=== PATIENT | female | born 1980 | race Caucasian/White ===

== ENCOUNTER → 2021-04-05 | Outpatient (CLI) | payer OTHER ==
--- NOTE | 2021-04-05 09:01 | US ---
EXAMINATION TYPE: US thyroid st tissue head/neck DATE OF EXAM: 04/05/2021 COMPARISON: NONE CLINICAL HISTORY: 40-year-old female R44.8 symptoms/signs involving sensations/percepti. Patient stat es she has slowly been gaining weight. Technique: Multiple sonographic images of the thyroid gland are obtained. FINDINGS: GLAND SIZE: Right Lobe: 4.5 x 1.4 x 1.7 cm Overall Parenchyma: homogenous Left Lobe: 4.3 x 1.4 x 1.4 cm Overall Parenchyma: homogeneous Isthmus Thickness: 0.2 cm NODULES RIGHT: # of nodules measured on right: 1 1. 0.7 X 0.6 x 0.5 cm, mid , solid or almost completely solid, hypoechoic TR 4 nodule, which is wid er than tall, with smooth margins, without echogenic foci. Prior size: no prior LEFT: # of nodules measured on left: 1 1. 0.6 X 0.4 x 0.4 cm, mid lateral, solid or almost completely solid, hypoechoic TR4 nodule, which is wide as tall, with smooth margins, without echogenic foci. Prior size: no prior ISTHMUS: # of nodules measured in the isthmus: 0 Bilateral neck scanned, no evidence of lymphadenopathy. IMPRESSION: A single solitary TR4 nodule on either side measuring 7 mm on the right and 6 mm on the left. Follow- up can be considered.
== END | disposition home or self-care (01) ==
LOC: RADUSWWP 07:06
PROVIDERS: ATTEND Family Medicine
DX: E04.1 Nontoxic single thyroid nodule (principal)
CPT/HCPCS: 76536

== ENCOUNTER → 2021-05-07 | Outpatient (CLI) | payer OTHER ==
--- NOTE | 2021-05-07 14:24 | US ---
EXAMINATION TYPE: US transvaginal DATE OF EXAM: 05/07/2021 COMPARISON: NONE CLINICAL HISTORY: 40-year-old female D25.9 Leiomyoma of uterus, unspecified. TECHNIQUE: Transvaginal (TV). Date of LMP: 04/26/2021 FINDINGS: EXAM MEASUREMENTS: Uterus: 8.8 x 4.9 x 6.7 cm Endometrial Stripe: 1.3cm Right Ovary: 3.5 x 1.8 x 2.4 cm Left Ovary: 3.0 cm 1. Uterus: Retroverted and otherwise wnl 2. Endometrium: wnl 3. Right Ovary: Contains a 1.9 cm dominant follicle or functional cyst. 4. Left Ovary: wnl 5. Bilateral Adnexa: small amount of fluid adjacent to each ovary. 6. Posterior cul-de-sac: wnl IMPRESSION: 1. Retroverted uterus. 2. Endometrial stripe measuring 1.3 cm should correspond to the secretory phase of the menstrual cycl e. 3. Follicular changes in the ovaries. 4. Trace free fluid adjacent to each ovary, likely physiologic.
== END | disposition home or self-care (01) ==
LOC: RADUSWWP 10:03
PROVIDERS: ATTEND Family Medicine
DX: N85.4 Malposition of uterus (principal)
CPT/HCPCS: 76830

== ENCOUNTER → 2021-07-30 | Day surgery (SDC) | payer OTHER ==
[2021-07-30 10:02] VITALS: RESP 16; TEMP 97.9
[2021-07-30 13:45] VITALS: BP 125/85; PULSE 77
--- NOTE | 2021-07-30 15:30 | USB ---
EXAMINATION TYPE: US discontinued breast bx LT DATE OF EXAM: 07/30/2021 CLINICAL HISTORY: 41-year-old female referred for ultrasound-guided core needle biopsy left breast. TECHNIQUE: Attempted ultrasound guided core biopsy of the 5:00 left breast. COMPARISON: 06/25/2021 FINDINGS: The procedure of ultrasound guided core biopsy was explained to the patient. Benefits, alt ernatives, and risks were discussed. An informed consent was then obtained. The ovoid, mildly lobulated hypoechoic lesion, possible cyst cluster measuring 1.4 x 1.1 x 0.4 cm it is located at the 5:00 position and targeted for biopsy. The patient was placed in supine positioning for imaging and for the procedure. The overlying skin w as prepped and draped in usual sterile fashion. Lidocaine was used as anesthetic into the skin and subcutaneous tissue up to area of concern in the 5 :00 left breast. Multiple exams were made to anesthetize the tissues between the chest wall/implant a nd lesion. We could not discern a separate, intervening plane. The lesion moved with the chest wall u ga probing with the needle tip. On some images it appeared that the lesion actually involve the ches t wall itself. Given the patient's breast implants, this may represent chronic postsurgical change. The decision to was made to discontinue biopsy and reassess the area in 6 months. Impression and recommendations were discussed with the patient at the time of the procedure. The patient tolerated the procedure well without any immediate complication. The patient was kept in the radiology department for short stay after the procedure and then discharged home in stable condi tion. IMPRESSION: Attempted ultrasound-guided core needle biopsy at the 5:00 left breast. We were unable to separate th e 1.4 cm area from the chest wall/pectoralis muscle layer. Given the patient's implants, this may rep resent chronic postsurgical change. Biopsy was discontinued and six-month follow-up will be recommend ed. RECOMMENDATION: 1. Six-month follow-up diagnostic left breast mammogram for the posterior calcifications which were n ot amenable to conventional stereotactic core needle biopsy due to underlying implant. 2. Six-month follow-up left breast ultrasound for the 5:00 area which could not be from the pectoralis muscle layer, possible chronic postsurgical change. 3. Patient should continue monthly self breast exams. 4. This exam should not preclude additional follow-up of suspicious palpable abnormalities.
--- NOTE | 2021-07-30 15:36 | MM ---
EXAMINATION TYPE: MG discontinued stereo core LT DATE OF EXAM: 07/30/2021 COMPARISON: Mammogram 06/25/2021 CLINICAL HISTORY: 41-year-old female referred for biopsy of posterior left breast microcalcifications . TECHNIQUE: Attempted stereotactic guided core biopsy of the 5:00 posterior left breast microcalcifica tions. FINDINGS: The procedure of stereotactic guided core biopsy was explained to the patient. Benefits, a lternatives, and risks were discussed. An informed consent was then obtained. The shortness pathway for biopsy was chosen. Shortness pathway was a CC from below approach. We were unable to obtain a satisfactory view of the microcalcifications despite multiple projections that were attempted. In all of the views, the patient's breast implant slipped anteriorly into the fi eld-of-view. Findings were discussed with the patient. Options including 6 month short interval follow-up, tomogra phic biopsy on an upright unit at another institution, and needle localization with excision are disc ussed with the patient. The patient elects for short interval follow-up. IMPRESSION: 1. The patient's breast implant slipped into the field of view on all attempted approaches. The poste rior calcifications were not amenable to conventional stereotactic core needle biopsy. Options were d iscussed with the patient. The patient elects for 6 month follow-up diagnostic left breast mammogram for reassessment of the calcifications. RECOMMENDATION: 1. Six-month follow-up diagnostic left breast mammogram for the 5:00 posterior calcifications which w ere not amenable to conventional stereotactic core needle biopsy due to underlying implant. 2. Six-month follow-up left breast ultrasound for the 5:00 area which could not be from the pectoralis muscle layer, possible chronic postsurgical change. 3. Patient should continue monthly self breast exams. 4. This exam should not preclude additional follow-up of suspicious palpable abnormalities.
== END ==
LOC: RADMAMWWP 09:33
PROVIDERS: ATTEND Family Medicine
DX: R92.8 Other abnormal and inconclusive findings on diagnostic imaging of breast (principal); N63.20 Unspecified lump in the left breast, unspecified quadrant; Z53.9 Procedure and treatment not carried out, unspecified reason
CPT/HCPCS: 76641; J2001